=== PATIENT | female | born 1975 | race Two or more races ===

== ENCOUNTER 2018-11-08 22:20 | Emergency (ER) | payer MEDICAID ==
[~2018-11-08] VITALS: Ht 162.6 cm; Wt 59.0 kg
--- NOTE | 2018-11-08 22:22 | NUR ---
PT BIB DAUGHTER C/O HEADACHE, DIZZINESS, NAUSEA AND BLURRY VISION X5 DAYS. PT AOX4. RESP EVEN AND UNLABORED. PT AMBULATORY. PT ON MONITOR IN BED 2 WITH DAUGHTER AT BEDSIDE. WILL CONTINUE TO MONITOR.
[2018-11-08] MEDS ORDERED: ONDANSETRON 4 MG TAB.RAPDIS SL ONE (23:00)
[2018-11-08] MEDS ORDERED: MECLIZINE HCL 25 MG TABLET PO ONE (23:00)
[2018-11-08] MEDS ORDERED: oxyCODONE/APAP (5/325 MG) 1 UDTAB TABLET PO ONE (23:00)
[2018-11-08] MEDS ORDERED: oxyCODONE/APAP (5/325 MG) 1 UDTAB TABLET ONE (23:09)
[2018-11-08] MEDS ORDERED: ONDANSETRON 4 MG TAB.RAPDIS ONE (23:09)
[2018-11-08] MEDS ORDERED: MECLIZINE HCL 25 MG TABLET ONE (23:09)
[2018-11-09] MEDS ORDERED: LORAZEPAM 1 MG TABLET PO ONE
[2018-11-09] MEDS ORDERED: LORAZEPAM 1 MG TABLET ONE (00:01)
[2018-11-09] MEDS ORDERED: DIAZEPAM 5 MG TABLET ONE (00:09)
[2018-11-09 00:10] LABS: BASOPHILS # (AUTO) 0.2 /CMM (0.0-0.2); BASOPHILS % (AUTO) 1.8 % (0.0-2.0); EOSINOPHILS % (AUTO) 3.8 % (0.0-6.0); HEMATOCRIT 36 % (33-45); HEMOGLOBIN 12.1 g/dL (11.5-14.8); LYMPHOCYTES # (AUTO) 2.3 /CMM (0.8-4.8); LYMPHOCYTES % (AUTO) 26.8 % (20.0-44.0); MEAN CORPUSCULAR HGB CONC 34 g/dl (31.0-36.0); MEAN CORPUSCULAR VOLUME 86 fL (82-100); MONOCYTES # (AUTO) 0.6 /CMM (0.1-1.30); NEUTROPHILS # (AUTO) 5.3 /CMM (1.8-8.9); NEUTROPHILS % (AUTO) 60.6 % (43.0-81.0); PLATELET COUNT (AUTO) 235 /CMM (150-450); RED BLOOD CELL COUNT(AUTO) 4.12 MIL/uL (4.0-5.2); WHITE BLOOD COUNT (AUTO) 8.7 K/uL (4.3-11.0)
[2018-11-09 00:20] LABS: CALCIUM, SERUM 9.1 mg/dL (8.5-10.1); CREATININE 0.9 mg/dL (0.6-1.3); POTASSIUM 4.2 mmol/L (3.5-5.1)
[2018-11-09 00:26] LABS: ALBUMIN 3.8 g/dL (3.4-5.0); BILIRUBIN,DIRECT 0.1 mg/dL (0.0-0.2); BILIRUBIN,TOTAL 0.2 mg/dL (0.2-1.0); TOTAL PROTEIN, SERUM 6.8 g/dL (6.4-8.2)
[2018-11-09] MEDS ORDERED: DIAZEPAM 10 MG TABLET PO ONE (00:30)
--- NOTE | 2018-11-09 00:34 | NUR ---
FAMILY AT BEDSIDE
[2018-11-09 01:09] VITALS: BP 117/71
--- NOTE | 2018-11-09 01:40 | NUR ---
Patient discharged to home in stable condition. Written and verbal after care instructions given. Patient verbalizes understanding of instruction. PT AMBULATORY WITH STEADY GAIT ACCOMPANIED BY FAMILY.
== END 2018-11-09 01:41 | disposition home or self-care (01) ==
LOC: ER 22:27
DX: R51 Headache (principal); R42 Dizziness and giddiness; R53.1 Weakness
CPT/HCPCS: 36415; 80048; 80076; 85025; 85652; 85730; 99284; J8597; Q0162

== ENCOUNTER 2019-05-04 13:46 | Emergency (ER) | payer MEDICAID ==
[~2019-05-04] VITALS: Ht 160 cm; Wt 56.7 kg
[2019-05-04 13:54] VITALS: BP 110/76
[2019-05-04] MEDS ORDERED: AMOXICILLIN TRIHYDRATE 250 MG CAPSULE PO ONE (15:30)
[2019-05-04] MEDS ORDERED: predniSONE 20 MG TABLET PO ONE (15:30)
[2019-05-04] MEDS ORDERED: predniSONE 20 MG TABLET ONE (15:34)
[2019-05-04] MEDS ORDERED: AMOXICILLIN TRIHYDRATE 250 MG CAPSULE ONE (15:34)
== END 2019-05-04 16:32 | disposition home or self-care (01) ==
LOC: ER 13:49
DX: J02.9 Acute pharyngitis, unspecified (principal)

== ENCOUNTER 2021-01-14 02:44 | Emergency (ER) | payer MEDICAID ==
[~2021-01-14] VITALS: Ht 160 cm; Wt 54.4 kg
[2021-01-14] MEDS ORDERED: MAG HYDROX/AL HYDROX/SIMETH 30 ML UDC ONE (03:54)
[2021-01-14] MEDS ORDERED: LIDOCAINE VISCOUS 2% UD 15 ML UDC ONE (03:54)
--- NOTE | 2021-01-14 03:54 | NUR ---
PT AAOX4. BIBSELF C.O EPIGASTRIC PAIN RADIATING TO CHEST. PLACED IN BED 1 ON MONITOR AND PULSE OX. AWAITING ER MD FOR EVAL AND ORDERS.
[2021-01-14] MEDS ORDERED: LIDOCAINE VISCOUS 2% UD 15 ML UDC MM ONE (04:00)
[2021-01-14] MEDS ORDERED: MAG HYDROX/AL HYDROX/SIMETH 30 ML UDC PO ONE (04:00)
--- NOTE | 2021-01-14 04:00 | NUR ---
lab at bedside
[2021-01-14 04:09] LABS: BASOPHILS # (AUTO) 0.1 K/uL (0.0-0.2); BASOPHILS % (AUTO) 0.5 % (0.0-2.0); EOSINOPHILS % (AUTO) 3.8 % (0.0-6.0); HEMATOCRIT 38 % (33-45); HEMOGLOBIN 12.9 g/dL (11.5-14.8); LYMPHOCYTES % (AUTO) 19.2 % (20.0-44.0); MEAN CORPUSCULAR HGB CONC 34 g/dl (31.0-36.0); MEAN CORPUSCULAR VOLUME 86 fL (82-100); MONOCYTES # (AUTO) 0.8 K/uL (0.1-1.30); MONOCYTES % (AUTO) 7.3 % (2.0-12.0); NEUTROPHILS # (AUTO) 7.2 K/uL (1.8-8.9); NEUTROPHILS % (AUTO) 69.2 % (43.0-81.0); PLATELET COUNT (AUTO) 265 K/uL (150-450); RED BLOOD CELL COUNT(AUTO) 4.38 MIL/uL (4.0-5.2); WHITE BLOOD COUNT (AUTO) 10.4 K/uL (4.3-11.0)
[2021-01-14 04:33] LABS: CALCIUM, SERUM 9.2 mg/dL (8.5-10.1); CARBON DIOXIDE 29 mmol/L (21-32); CHLORIDE 105 mmol/L (98-107); CREATININE 0.6 mg/dL (0.6-1.3); GLUCOSE 87 mg/dL (74-106); POTASSIUM 3.8 mmol/L (3.5-5.1); SODIUM SERUM 139 mmol/L (136-145); UREA NITROGEN, BLOOD 12 mg/dL (7-18)
[2021-01-14 04:46] LABS: ALANINE AMINOTRANSFERASE 35 U/L (12-78); ALBUMIN 3.7 g/dL (3.4-5.0); ALKALINE PHOSPHATASE 61 U/L (46-116); ASPARTATE AMINOTRANSFERASE 14 U/L (15-37); BILIRUBIN,DIRECT 0.1 mg/dL (0.0-0.2); BILIRUBIN,TOTAL 0.3 mg/dL (0.2-1.0); TOTAL PROTEIN, SERUM 6.9 g/dL (6.4-8.2)
[2021-01-14] MEDS ORDERED: CT SWABBABLE VALVE TRANS SET 1 EA INFUS.SET MC ONE (04:54)
[2021-01-14] MEDS ORDERED: IV NS 0.9% 250 ML IV ONE (04:54)
[2021-01-14] MEDS ORDERED: IOHEXOL-350 100 ML VIAL IV ONE (04:54)
--- NOTE | 2021-01-14 05:00 | NUR ---
taken to xray
[2021-01-14] MEDS ORDERED: PANT40TA2 PO (05:38)
--- NOTE | 2021-01-14 05:48 | NUR ---
Patient discharged to home in stable condition. Written and verbal after care instructions given. Patient verbalizes understanding of instruction.
[2021-01-14 05:49] VITALS: BP 120/77
== END 2021-01-14 05:49 | disposition home or self-care (01) ==
LOC: ER 02:47
DX: K21.9 Gastro-esophageal reflux disease without esophagitis (principal); Z79.899 Other long term (current) drug therapy
CPT/HCPCS: 36415; 71045; 71275; 80048; 80076; 83880; 84484; 85025; 85378; 93005; 99285; J7050; Q9967